=== PATIENT | female | born 1950 | race Caucasian/White ===

== ENCOUNTER → 2018-08-06 08:04 | Outpatient (CLI) | payer MEDICARE, SELFPAY ==
[2018-08-06 09:13] LABS: BUN Creatinine Ratio 26.3 (6-22); Blood Urea Nitrogen 21 mg/dL (7-17); Calcium 9.7 mg/dL (8.4-10.2); Carbon Dioxide 27 mmol/L (22-32); Chloride 100 mmol/L (98-107); Estimated Glomerular Filt Rate > 60.0 mL/min (>60); Glucose 109 mg/dL (80-110); HEMOLYSIS < 15 (0-50); Potassium 3.9 mmol/L (3.4-5.1); Sodium 137 mmol/L (137-145)
== END ==
PROVIDERS: PCP Student in an Organized Health Care Education/Training Program; Visit Provider Student in an Organized Health Care Education/Training Program
DX: I10 Essential (primary) hypertension (principal); Z90.5 Acquired absence of kidney
CPT/HCPCS: 36415; 80048

== ENCOUNTER → 2018-09-26 14:32 | Outpatient (CLI) | payer MEDICARE, SELFPAY ==
[2018-09-26 15:35] LABS: Add Manual Diff / Slide Review NO; Basophils Absolute Auto 0 /uL (0-100); Basophils Percent Auto 0.5 % (0-2); Eosinophils Absolute Auto 300 /uL (0-450); Hematocrit 41.2 % (36-46); Hemoglobin 14.3 g/dL (12.0-16.0); Lymphocytes Absolute Auto 2500 /uL (1100-4500); Lymphocytes Percent Auto 38.7 % (25-40); Mean Corpuscular HGB Conc 34.6 % (30-36); Mean Corpuscular Hemoglobin 30.5 PG (26-34); Mean Corpuscular Volume 88.2 fL (80-100); Monocytes Absolute Auto 500 /uL (0-900); Monocytes Percent Auto 7.4 % (3-14); Neutrophils Absolute Auto 3200 /uL (1500-7000); Neutrophils Percent Auto 48.4 % (50-75); Platelet Count 277 X10^3/uL (150-400); Red Blood Cell Count 4.68 X10^6/uL (4.0-5.2); Red Cell Distribution Width 12.1 % (11.6-14.8); White Blood Cell Count 6.6 X10^3/uL (4.5-11.0)
[2018-09-26 17:07] LABS: Thyroid Stimulating Hormone 1.43 uIU/mL (0.47-4.68)
== END ==
PROVIDERS: PCP Student in an Organized Health Care Education/Training Program; Visit Provider Hospitalist
DX: R53.83 Other fatigue (principal)
CPT/HCPCS: 36415; 84443; 85025

== ENCOUNTER → 2019-07-17 12:26 | Outpatient (CLI) | payer MEDICARE, SELFPAY ==
--- NOTE | 2019-07-17 12:29 | DI.MG.S_ITS ---
BILATERAL DIGITAL SCREENING MAMMOGRAM 3D/2D WITH CAD: 07/17/2019 CLINICAL: Routine screening. Comparison is made to exams dated: 01/21/2018 mammogram, 01/19/2017 mammogram, and 01/14/2016 mammogram - [facility]. The tissue of both breasts is heterogeneously dense. This may lower the sensitivity of mammography. Current study was also evaluated with a Computer Aided Detection (CAD) system. No significant masses, calcifications, or other findings are seen in either breast. There has been no significant interval change. IMPRESSION: NEGATIVE There is no mammographic evidence of malignancy. A 1 year screening mammogram is recommended. This exam was interpreted at Station ID: [id number]. NOTE: For mammograms, a report in lay terms will be sent to the patient. Approximately 15% of breast malignancies will not be visualized mammographically. In the management of a palpable breast mass, a negative mammogram must not discourage biopsy of a clinically suspicious lesion. Electronically Signed By: Dominic still/nina:07/23/2019 19:43:23 letter sent: Normal Exam ACR BI-RADS Category 1: Negative [id number]
== END ==
PROVIDERS: PCP Student in an Organized Health Care Education/Training Program; Referring Provider Student in an Organized Health Care Education/Training Program; Visit Provider Student in an Organized Health Care Education/Training Program
DX: Z12.31 Encounter for screening mammogram for malignant neoplasm of breast (principal); Z13.820 Encounter for screening for osteoporosis; M85.852 Other specified disorders of bone density and structure, left thigh; Z78.0 Asymptomatic menopausal state; Z82.62 Family history of osteoporosis; Z91.89 Other specified personal risk factors, not elsewhere classified
CPT/HCPCS: 77063; 77067; 77080

== ENCOUNTER → 2020-06-01 07:51 | Outpatient (CLI) | payer MEDICARE, SELFPAY ==
[2020-06-01 09:11] LABS: Alanine Aminotransferase 37 IU/L (<35); Albumin 4.2 g/dL (3.5-5.0); Albumin Globulin Ratio 1.5 (1.0-2.8); Alkaline Phosphatase 67 U/L (38-126); Aspartate Aminotransferase 31 IU/L (14-36); BUN Creatinine Ratio 21.3 (6-22); Bilirubin Total 0.7 mg/dL (0.2-1.3); Blood Urea Nitrogen 16 mg/dL (7-17); Calcium 10.1 mg/dL (8.4-10.2); Carbon Dioxide 26 mmol/L (22-32); Chloride 105 mmol/L (98-107); Cholesterol 219 mg/dL (140-199); Estimated Glomerular Filt Rate > 60.0 mL/min (>60); Globulin 2.8 g/dL (1.7-4.1); Glucose 120 mg/dL (80-110); HDL Cholesterol 79 mg/dL (40-60); HEMOLYSIS < 15 (0-50); LDL Cholesterol Calculated 113 mg/dL (<100); Potassium 4.1 mmol/L (3.4-5.1); Sodium 135 mmol/L (137-145); Triglycerides 136 mg/dL (35-150)
== END ==
PROVIDERS: PCP Student in an Organized Health Care Education/Training Program; Referring Provider Registered Nurse; Visit Provider Registered Nurse
DX: I10 Essential (primary) hypertension (principal); E78.5 Hyperlipidemia, unspecified
CPT/HCPCS: 36415; 80053; 80061

== ENCOUNTER → 2020-07-07 14:57 | Outpatient (CLI) | payer MEDICARE, SELFPAY ==
[2020-07-07] MEDS: COVID-19 VACC #1, MRNA(MOD) 100 MCG/0.5 ML VIAL IM (15:04)
== END ==
PROVIDERS: PCP Student in an Organized Health Care Education/Training Program; Visit Provider Internal Medicine
DX: Z23 Encounter for immunization (principal)
CPT/HCPCS: 0011A; 91301

== ENCOUNTER → 2020-08-05 12:31 | Outpatient (CLI) | payer MEDICARE, SELFPAY ==
[2020-08-05] MEDS: COVID-19 VACC #2, MRNA(MOD) 100 MCG/0.5 ML VIAL IM (12:36)
== END ==
PROVIDERS: PCP Student in an Organized Health Care Education/Training Program; Visit Provider Internal Medicine
DX: Z23 Encounter for immunization (principal)
CPT/HCPCS: 0012A; 91301

== ENCOUNTER 2020-12-08 14:44 | Observation (INO) | payer MEDICARE, SELFPAY ==
[2020-12-08] VITALS (14 sets, daily range): BP systolic 130–179; BP diastolic 67–89; PULSE 58–84; RESP 11–23; TEMP 36.3–37.3; O2SAT 95–98; BMI 30.4
--- NOTE | 2020-12-08 14:55 | DI.RAD.S_ITS ---
PROCEDURE: XR CHEST 1V INDICATIONS: Chest pain TECHNIQUE: One view of the chest was acquired. COMPARISON: None. FINDINGS: Surgical changes and devices: None. Lungs and pleura: Lungs are clear. No pleural effusions or pneumothorax. Mediastinum: Mediastinal contours appear normal. Heart size is normal. Bones and chest wall: No suspicious bony lesions. Overlying soft tissues appear unremarkable. IMPRESSION: No acute cardiopulmonary process demonstrated radiographically. Dictated by: Franklin Walker M.D. on 12/08/2020 at 15:23 Approved by: Franklin Walker M.D. on 12/08/2020 at 15:23
[2020-12-08 15:11] LABS: Add Manual Diff / Slide Review NO; Basophils Absolute Auto 100 /uL (0-100); Basophils Percent Auto 0.8 % (0-2); Eosinophils Absolute Auto 400 /uL (0-450); Eosinophils Percent Auto 4.3 % (2-4); Hematocrit 40.8 % (36-46); Hemoglobin 14.1 g/dL (12.0-16.0); Lymphocytes Absolute Auto 2600 /uL (1100-4500); Lymphocytes Percent Auto 30.2 % (25-40); Mean Corpuscular HGB Conc 34.5 % (30-36); Mean Corpuscular Hemoglobin 30.9 PG (26-34); Mean Corpuscular Volume 89.7 fL (80-100); Monocytes Absolute Auto 700 /uL (0-900); Monocytes Percent Auto 7.7 % (3-14); Neutrophils Absolute Auto 4800 /uL (1500-7000); Platelet Count 280 X10^3/uL (150-400); Red Blood Cell Count 4.55 X10^6/uL (4.0-5.2); Red Cell Distribution Width 13.5 % (11.6-14.8); White Blood Cell Count 8.5 X10^3/uL (4.5-11.0)
[2020-12-08 15:24] LABS: Alanine Aminotransferase 41 IU/L (<35); Albumin 4.5 g/dL (3.5-5.0); Albumin Globulin Ratio 1.5 (1.0-2.8); Alkaline Phosphatase 72 U/L (38-126); Aspartate Aminotransferase 33 IU/L (14-36); BUN Creatinine Ratio 22.4 (6-22); Bilirubin Total 0.8 mg/dL (0.2-1.3); Blood Urea Nitrogen 22 mg/dL (7-17); Calcium 10.4 mg/dL (8.4-10.2); Carbon Dioxide 25 mmol/L (22-32); Chloride 105 mmol/L (98-107); Creatine Kinase 85 U/L (30-135); Estimated Glomerular Filt Rate 56.1 mL/min (>60); Glucose 101 mg/dL (80-110); HEMOLYSIS < 15 (0-50); Lipase 151 U/L (23-300); Potassium 3.8 mmol/L (3.4-5.1); Sodium 137 mmol/L (137-145); Total Protein 7.5 g/dL (6.3-8.2)
[2020-12-08 15:34] LABS: Troponin I < 0.012 ng/mL (0.01-0.034)
--- NOTE | 2020-12-08 16:53 | ED_ITS ---
HPI - Chest Pain General Chief Complaint: Chest Pain Stated Complaint: chest pain Time Seen by Provider: 12/08/20 16:07 Source: patient Mode of arrival: Ambulatory History of Present Illness HPI narrative: Patient is a 70-year-old female with history of hypertension hyperlipidemia presenting with chest heaviness and discomfort. She said it started while she was riding in the car around 1:00 p.m.. It radiated up to her neck and jaw she felt like her jaw was clenched. She went home and try to rest. It did subside some however she started having some numbness and left arm discomfort as well. She says she in the past has had right arm discomfort and numbness but never left. No prior history of coronary artery disease. Pain has now gone in the emergency department although when she 1st got here she had some. MD complaint: chest pain Onset (ago): hour(s) Duration: intermittent Onset: during rest Pain location: substernal Severity: moderate Pain radiation: LUE, neck and jaw/teeth Exacerbating factors: nothing Related Data Previous Rx's Medication Instructions Recorded cetirizine 5 mg-pseudoephedrine ER 1 tab PO Q12H PRN #30 tab 09/26/18 120 mg tablet,extended release,12hr (Zyrtec-D) atorvastatin 20 mg tablet 20 mg PO DAILY #90 tab 11/24/20 fluoxetine 40 mg capsule 40 mg PO DAILY #90 cap 11/24/20 losartan 100 1 tab PO DAILY #90 tab 11/24/20 mg-hydrochlorothiazide 25 mg tablet Allergies Allergy/AdvReac Type Severity Reaction Status Date / Time venom-honey bee Allergy Severe Anaphylaxis Verified 11/24/20 09:08 codeine Allergy Intermediate nausea, Verified 11/24/20 09:08 diarrhea Review of Systems Review of Systems Narrative: GENERAL: Denies chills, fatigue, malaise, fever, sweats, travel HEENT: Denies sinus pain, ear pain, sore throat, difficulty swallowing, neck pain RESPIRATORY: Denies dyspnea, cough, wheezing, hemoptysis, sputum. CARDIOVASCULAR: See HPI GASTROINTESTINAL: Denies nausea, vomiting, abdominal pain, diarrhea, constipation, melena. : Denies dysuria, frequency, incontinence, hematuria, urinary retention, flank pain. MUSCULOSKELETAL: Denies weakness, joint pain, or bony pain SKIN: No rash, no erythema, no pruritus NEUROLOGIC: Denies weakness, dizziness, headache, numbness, change in speech, confusion PSYCHIATRIC: No concerning psychosocial issues. 12 point review of systems is negative except for those stated above and HPI Patient History Social History Smoking Status: Never smoker Smoking Status: Never smoker Exam Initial Vital Signs Initial Vital Signs: Vital Signs Temperature 97.9 F 12/08/20 14:53 Pulse Rate 78 12/08/20 14:53 Respiratory Rate 20 12/08/20 14:53 Blood Pressure 179/89 H 12/08/20 14:53 Pulse Oximetry 98 12/08/20 14:53 GENERAL: Alert pleasant 70-year-old female HEENT: Head atraumatic,EOMI, pupils reactive, face symmetric, moist mucous membranes CARDIOVASCULAR: Regular rate and rhythm without murmurs, rubs or gallops. RESPIRATORY: Breath sounds equal bilaterally, no wheezes rales or rhonchi. ABDOMEN: Soft, nontender. Normoactive bowel sounds all 4 quadrants. No guarding or rebound. EXTREMITIES: Normal range of motion, no clubbing or edema. Neurovascularly intact NEUROLOGICAL: Alert and oriented x4.Normal gait and speech. SKIN: Warm, dry, no laceration, no petechiae, no rashes or lesions. Scores HEART Score Heart Score history: Highly Suspicious Heart Score EKG: Normal Heart Score Age: > or = 65 years old Heart Score risk factors: 1-2 risk factors Heart Score troponin: < or = to normal limit Heart Score Total: 5 Course Orders Ordered: ED Orders 12/08/20 14:55 XR chest 1V Stat EKG-12 Lead Stat 12/08/20 15:04 Complete Blood Count AUTO DIFF Stat Comprehensive Metabolic Panel Stat Lipase Stat Troponin & CK Cardiac Panel Stat 12/08/20 16:40 EKG-12 Lead Stat 12/08/20 17:08 Trop I [Troponin I] Stat Discontinued Medications Aspirin (Aspirin 81 Mg Chew Tab) 324 mg PO NOW ONE Stop: 12/08/20 16:41 Last Admin: 12/08/20 17:23 Dose: 324 mg Documented by: JOSEF Vital Signs Vital signs: Vital Signs - 8 hr 12/08/20 14:53 12/08/20 15:06 12/08/20 15:13 Temperature 97.9 F Pulse Rate 78 65 Respiratory Rate 20 12 Blood Pressure 179/89 H 176/79 H Pulse Oximetry 98 98 98 12/08/20 15:30 12/08/20 16:00 12/08/20 16:37 Temperature Pulse Rate 61 62 66 Respiratory Rate 11 L 13 Blood Pressure 162/70 H 148/67 H Pulse Oximetry 97 12/08/20 17:00 Temperature Pulse Rate 63 Respiratory Rate 19 Blood Pressure Pulse Oximetry MDM - Chest Pain Lab Data Attestation: I reviewed the patient's lab results. Result diagrams: 12/08/20 15:04 12/08/20 15:04 Labs: Lab Results 12/08/20 12/08/20 12/08/20 Range/Units 15:04 15:04 17:08 WBC 8.5 (4.5-11.0) X10^3/uL RBC 4.55 (4.0-5.2) X10^6/uL Hgb 14.1 (12.0-16.0) g/dL Hct 40.8 (36-46) % MCV 89.7 (80-100) fL MCH 30.9 (26-34) PG MCHC 34.5 (30-36) % RDW 13.5 (11.6-14.8) % Plt Count 280 (150-400) X10^3/uL Neut % (Auto) 57.0 (50-75) % Lymph % (Auto) 30.2 (25-40) % [place] % (Auto) 7.7 (3-14) % Eos % (Auto) 4.3 H (2-4) % Baso % (Auto) 0.8 (0-2) % Neut # (Auto) 4800 (7233-0586) /uL Lymph # (Auto) 2600 (3271-2692) /uL [place] # (Auto) 700 (0-900) /uL Eos # (Auto) 400 (0-450) /uL Baso # (Auto) 100 (0-100) /uL Sodium 137 (137-145) mmol/L Potassium 3.8 (3.4-5.1) mmol/L Chloride 105 (98-107) mmol/L Carbon Dioxide 25 (22-32) mmol/L BUN 22 H (7-17) mg/dL Creatinine 0.98 (0.52-1.04) mg/dL Estimated GFR 56.1 L (>60) mL/min BUN/Creatinine Ratio 22.4 H (6-22) Glucose 101 (80-110) mg/dL Calcium 10.4 H (8.4-10.2) mg/dL Total Bilirubin 0.8 (0.2-1.3) mg/dL AST 33 (14-36) IU/L ALT 41 H (<35) IU/L Alkaline Phosphatase 72 (38-126) U/L Total Creatine Kinase 85 (30-135) U/L CK-MB (CK-2) TNP CK-MB (CK-2) Rel Index TNP Troponin I < 0.012 < 0.012 (0.01-0.034) ng/mL Total Protein 7.5 (6.3-8.2) g/dL Albumin 4.5 (3.5-5.0) g/dL Globulin 3.0 (1.7-4.1) g/dL Albumin/Globulin Ratio 1.5 (1.0-2.8) Lipase 151 (23-300) U/L Imaging Data Chest x-ray: Radiologist's Impression: PROCEDURE: XR CHEST 1V INDICATIONS: Chest pain TECHNIQUE: One view of the chest was acquired. COMPARISON: None. FINDINGS: Surgical changes and devices: None. Lungs and pleura: Lungs are clear. No pleural effusions or pneumothorax. Mediastinum: Mediastinal contours appear normal. Heart size is normal. Bones and chest wall: No suspicious bony lesions. Overlying soft tissues appear unremarkable. IMPRESSION: No acute cardiopulmonary process demonstrated radiographically. Dictated by: Franklin Walker M.D. on 12/08/2020 at 15:23 ECG Data Attestation: I personally reviewed and interpreted this ECG as follows: Prior ECG tracings: not available for review Interpretation: EKG 1 Sinus rhythm rate 67 p.r. interval 166 QRS 86 QTC 431 Q- wave noted in lead 3 only no priors to compare no ST changes EKG 2. sinus rhythm is p.r. interval 166 QRS [address] changes T-wave noted in lead 3 only no providers MDM Narrative Medical decision making narrative: The patient's sinus symptoms are certainly concerning for coronary artery disease. She is factors of hypertension and hyperlipidemia. No EKG changes and troponins are negative. Dr. Sahu agrees to accept Discharge Plan Departure Patient Disposition: Admitted as Observation Clinical Impression: Chest pain
[2020-12-08] MEDS: ASPIRIN 81 MG CHEW TAB 324 MG PO (17:23)
[2020-12-08 17:44] LABS: Troponin I < 0.012 ng/mL (0.01-0.034)
[2020-12-08 19:27] LABS: COVID19 - ADMIT (NP swab/PCR) Negative (Negative)
--- NOTE | 2020-12-08 20:32 | PC.NURSE ---
no need for seizure pads per provider
[2020-12-08 20:40] LABS: Magnesium 1.7 mg/dL (1.6-2.3)
[2020-12-08 20:41] LABS: Hemoglobin A1C% w Est Avg Glu 5.6 % (4.0-6.0)
[2020-12-08 22:50] LABS: Troponin I < 0.012 ng/mL (0.01-0.034)
--- NOTE | 2020-12-09 00:01 | P.HP_ITS ---
History of Present Illness History of Present Illness Date Patient Seen: 12/08/20 Time Patient Seen: 19:45 Chief complaint: chest pain Narrative: Agueda Norris is a pleasant 70-year-old female with hypertension, hyperlipidemia and a remote history of kidney cancer presented to the emergency department with chest pain that started at 1:00 p.m. on December 08. She was riding as a passenger with her when she developed pain in the center of her sternum that lasted for about 10 minutes. That resolved and then she developed tightening of her jaw that also lasted for about 10 minutes. She states that since then it has been more pressure on her chest. It will get worse and then she will get shoulder and left arm pain which then gets tingly and numb. During the episode that happened earlier today she stated that she had just finished eating and had eaten leftover meat loaf and coffee. She did endorse having diarrhea in the morning. She currently has a headache. She denies shortness of breath, nausea and vomiting, dysuria, diarrhea or constipa tion. She does endorse drinking 3 glasses of wine at night, she denies a history of ever having withdrawal symptoms. She mainly drinks white wine. She did endorse having chest pressure prior to shift change, but when the nurse returned to verify the pain had gone away. In the ED she underwent EKG and a chest x-ray neither of which were remarkable. She has a low for 99.2, blood pressure 179/87, heart rate 62, respiratory rate of 18, her oxygen saturation is 97% on room air, she weighs 77.5 kg with a BMI of 30.4. Her CBC is unremarkable, limits with exception mildly elevated BUN 22, and GFR 56.1, calcium is 10.4, ALT is 41, hemoglobin A1c is 5.6, COVID 19 PCR is negative. Troponins x2 were within normal limits. Lipid panel and TSH are pending. Patient History Medical History (Updated 12/09/20 @ 00:08 by ROMAINE Cross) History of kidney cancer Surgical History (Updated 12/09/20 @ 00:08 by ROMAINE Cross) History of nephrectomy, right History of right knee surgery Family & Social History Family History (Updated 12/09/20 @ 00:09 by ROMAINE Cross) Mother Unknown family medical history Father Unknown family medical history Brother Alive and well Brother Alive and well Social History: household members spouse Prior Living Arrangements House Safety & Behavioral: Feels Safe in Current Yes Environment Suicidal Ideation Description None Tobacco & Substance use: Smoking Status Never smoker alcohol intake current alcohol intake frequency 3 or more drinks per day Substance Use Type does not use Meds Home Medications and Allergies Home Medications Medication Instructions Recorded Confirmed Type cetirizine 5 mg-pseudoephedrine ER 1 tab PO Q12H PRN #30 tab 09/26/18 12/08/20 Rx 120 mg tablet,extended release,12hr (Zyrtec-D) atorvastatin 20 mg tablet 20 mg PO DAILY #90 tab 11/24/20 12/08/20 Rx fluoxetine 40 mg capsule 40 mg PO DAILY #90 cap 11/24/20 12/08/20 Rx losartan 100 1 tab PO DAILY #90 tab 11/24/20 12/08/20 Rx mg-hydrochlorothiazide 25 mg tablet Allergies Allergy/AdvReac Type Severity Reaction Status Date / Time venom-honey bee Allergy Severe Anaphylaxis Verified 11/24/20 09:08 codeine Allergy Intermediate nausea, Verified 11/24/20 09:08 diarrhea Review of Systems Review of Systems ROS: Yes All systems reviewed with the patient and are negative except as otherwise documented Exam Vital Signs (past 8 hours): - 12/08/20 16:37 12/08/20 17:00 12/08/20 17:26 Temperature Pulse Rate 66 63 63 Respiratory Rate 19 20 Blood Pressure 173/74 H Pulse Oximetry 96 12/08/20 17:30 12/08/20 18:00 12/08/20 18:38 Temperature Pulse Rate 58 L 58 L 84 Respiratory Rate 18 14 Blood Pressure 166/74 H 157/69 H Pulse Oximetry 95 95 12/08/20 19:00 12/08/20 19:45 Temperature 99.2 F Pulse Rate 62 62 Respiratory Rate 23 18 Blood Pressure 130/88 179/87 H Pulse Oximetry 96 97 Oxygen Delivery Method Room Air Oxygen Flow Rate 0 Narrative Exam Narrative: Gen: Alert, oriented, well-developed 70 y.o. [] fe[]male, NAD HEENT: normocephalic, atraumatic, conjunctiva clear, sclera non-icteric, oral mucosa pink and moist Neck: supple, full ROM, no JVD, trachea is midline Resp: Lungs CTA, non-labored breathing CV: RRR, no murmur or rubs Abd: soft, non-tender, normoactive BTs Skin: Healed scar over the right knee, no LE edema, no lesions or rashes, dry and intact Neuro: Alert and oriented X 4 w/no focal deficits. Speech clear and coherent. Extremities: moves all 4 extremities, is ambulatory, negative Cole?s sign Psyche: normal mood and affect. Objective ECG Impression: Normal sinus rhythm. Labs Result Diagrams: 12/08/20 15:04 12/08/20 15:04 Labs: Laboratory Results - last 24 hr 12/08/20 12/08/20 12/08/20 15:04 15:04 15:04 WBC 8.5 RBC 4.55 Hgb 14.1 Hct 40.8 MCV 89.7 MCH 30.9 MCHC 34.5 RDW 13.5 Plt Count 280 Neut % (Auto) 57.0 Lymph % (Auto) 30.2 [place] % (Auto) 7.7 Eos % (Auto) 4.3 H Baso % (Auto) 0.8 Neut # (Auto) 4800 Lymph # (Auto) 2600 [place] # (Auto) 700 Eos # (Auto) 400 Baso # (Auto) 100 Sodium 137 Potassium 3.8 Chloride 105 Carbon Dioxide 25 BUN 22 H Creatinine 0.98 Estimated GFR 56.1 L BUN/Creatinine Ratio 22.4 H Glucose 101 Hemoglobin A1c 5.6 Calcium 10.4 H Magnesium Total Bilirubin 0.8 AST 33 ALT 41 H Alkaline Phosphatase 72 Total Creatine Kinase 85 CK-MB (CK-2) TNP CK-MB (CK-2) Rel Index TNP Troponin I < 0.012 Total Protein 7.5 Albumin 4.5 Globulin 3.0 Albumin/Globulin Ratio 1.5 Lipase 151 SARS-CoV-2 (PCR) 12/08/20 12/08/20 12/08/20 17:08 17:08 18:20 WBC RBC Hgb Hct MCV MCH MCHC RDW Plt Count Neut % (Auto) Lymph % (Auto) [place] % (Auto) Eos % (Auto) Baso % (Auto) Neut # (Auto) Lymph # (Auto) [place] # (Auto) Eos # (Auto) Baso # (Auto) Sodium Potassium Chloride Carbon Dioxide BUN Creatinine Estimated GFR BUN/Creatinine Ratio Glucose Hemoglobin A1c Calcium Magnesium 1.7 Total Bilirubin AST ALT Alkaline Phosphatase Total Creatine Kinase CK-MB (CK-2) CK-MB (CK-2) Rel Index Troponin I < 0.012 Total Protein Albumin Globulin Albumin/Globulin Ratio Lipase SARS-CoV-2 (PCR) Negative 12/08/20 22:18 WBC RBC Hgb Hct MCV MCH MCHC RDW Plt Count Neut % (Auto) Lymph % (Auto) [place] % (Auto) Eos % (Auto) Baso % (Auto) Neut # (Auto) Lymph # (Auto) [place] # (Auto) Eos # (Auto) Baso # (Auto) Sodium Potassium Chloride Carbon Dioxide BUN Creatinine Estimated GFR BUN/Creatinine Ratio Glucose Hemoglobin A1c Calcium Magnesium Total Bilirubin AST ALT Alkaline Phosphatase Total Creatine Kinase CK-MB (CK-2) CK-MB (CK-2) Rel Index Troponin I < 0.012 Total Protein Albumin Globulin Albumin/Globulin Ratio Lipase SARS-CoV-2 (PCR) Assessment & Plan Assessment & Plan narrative: Agueda Norris is placed into observation to rule out ACS. Chest pain r/o ACS, acute, present on admission * Pharmacological stress test on 12/09 * Start ASA 81 mg * Received nitro X [] in the ED * EKG shows no ischemic changes * cardiac telemetry * Consider CTA of the chest if the patient has recurrent front to back chest pain. Hypertension * continue losartan 100 mg po daily * Beta romulo may be contraindicated due to her baseline low heart rate HLD -Lipid panel, pending -Start/continue atorvastatin 40 mg po at bedtime Risk stratification -Fasting lipid panel pending -A1c 5.6% VTE prophylaxis: Wells risk score: 0 Enoxaparin 40 mg subQ daily Consults: none Patient is observation status as her stay is not likely to exceed 2 midnights. FEN: IV saline lock, heart healthy diet, BMP and magnesium in the am. Dispo: probable discharge to home Code Status: Full Code as discussed with patient, her Gurinder is her surrogate and POA COVID-19 COVID-19 status: Negative Result date/Date tested (Pos, Neg/Pending): 12/08/20 Quality VTE Deep Vein Thrombosis/Pulmonary Embolism Present on Admission: No MIPS - Admit I confirm the patient?s Advance Care Plan is present, Code status is documented, Surrogate decision maker is in patient?s record [If Yes, STOP here]: Yes
[2020-12-09 00:20] VITALS: BP 160/78; PULSE 59
[2020-12-09] MEDS: LOSARTAN 25 MG TABLET PO (00:20)
[2020-12-09 00:49] LABS: Thyroid Stimulating Hormone 0.987 uIU/mL (0.47-4.68)
--- NOTE | 2020-12-09 03:06 | PC.NURSE ---
Patient is alert and oriented. Breath sounds CTA with RA sat of 97%. At shift change complained of mid sternal pressure radiating through to back. Initially severity was 1-2/10 then increased to 4-5/10 and lasted for approximately 10 minutes (per patient) and then completely resolved without intervention. BP elevated at 160/78; ENVIRONMENTAL MAINTENANCE WORKER informed and order received for now dose of Losartan. Denied nausea. BT present and is passing flatus. Denied dysuria or urgency but states she gets up to urinate 2x/noc; dribbles urine. Is able to turn self in bed. Is up to bathroom independently and is steady on feet. Denied any other pain/discomfort. Fall risk score is low. Verbalized understanding that she will be NPO after 0500 in anticipation of undergoing stress test in morning.
[2020-12-09 04:43] LABS: Add Manual Diff / Slide Review NO; Basophils Absolute Auto 100 /uL (0-100); Basophils Percent Auto 0.7 % (0-2); Eosinophils Absolute Auto 400 /uL (0-450); Eosinophils Percent Auto 5.2 % (2-4); Hematocrit 40.9 % (36-46); Hemoglobin 13.6 g/dL (12.0-16.0); Lymphocytes Absolute Auto 2500 /uL (1100-4500); Lymphocytes Percent Auto 33.8 % (25-40); Mean Corpuscular HGB Conc 33.4 % (30-36); Mean Corpuscular Hemoglobin 30.2 PG (26-34); Mean Corpuscular Volume 90.5 fL (80-100); Monocytes Absolute Auto 500 /uL (0-900); Neutrophils Absolute Auto 4000 /uL (1500-7000); Neutrophils Percent Auto 53.3 % (50-75); Platelet Count 259 X10^3/uL (150-400); Red Blood Cell Count 4.52 X10^6/uL (4.0-5.2); Red Cell Distribution Width 13.4 % (11.6-14.8); White Blood Cell Count 7.5 X10^3/uL (4.5-11.0)
[2020-12-09 04:51] LABS: BUN Creatinine Ratio 24.1 (6-22); Blood Urea Nitrogen 21 mg/dL (7-17); Calcium 10.2 mg/dL (8.4-10.2); Carbon Dioxide 27 mmol/L (22-32); Chloride 103 mmol/L (98-107); Cholesterol 207 mg/dL (140-199); Estimated Glomerular Filt Rate > 60.0 mL/min (>60); Glucose 108 mg/dL (80-110); HDL Cholesterol 66 mg/dL (40-60); HEMOLYSIS < 15 (0-50); LDL Cholesterol Calculated 109 mg/dL (<100); Magnesium 1.6 mg/dL (1.6-2.3); Potassium 4.3 mmol/L (3.4-5.1); Sodium 136 mmol/L (137-145); Triglycerides 160 mg/dL (35-150)
[2020-12-09 05:01] VITALS: BP 146/67; PULSE 59; RESP 18; TEMP 36.3; O2SAT 98
[2020-12-09 05:02] LABS: Troponin I < 0.012 ng/mL (0.01-0.034)
[2020-12-09 08:46] VITALS: BP 146/67; PULSE 59
[2020-12-09] MEDS: LOSARTAN 50 MG TABLET 100 MG PO (08:46)
[2020-12-09] MEDS: ASPIRIN EC 81 MG TABLET PO (08:46)
[2020-12-09] MEDS: ENOXAPARIN 40 MG/0.4 ML SYRINGE SUBCUT (08:46)
[2020-12-09] MEDS: FLUoxetine 20 MG CAPSULE 40 MG PO (09:02)
[2020-12-09] MEDS: SODIUM CHLORIDE 0.9% FLUSH 10 ML IV (09:10)
[2020-12-09 09:38] VITALS: BP 156/77; PULSE 66; RESP 14; TEMP 36.6; O2SAT 98
--- NOTE | 2020-12-09 12:19 | P.DS_ITS ---
History of Present Illness History of Present Illness Chief complaint: chest pain Narrative: Gopi Whipple: Agueda Norris is a pleasant 70-year-old female with hypertension, hyperlipidemia and a remote history of kidney cancer presented to the emergency department with chest pain that started at 1:00 p.m. on December 08. She was riding as a passenger with her when she developed pain in the center of her sternum that lasted for about 10 minutes. That resolved and then she developed tightening of her jaw that also lasted for about 10 minutes. She states that since then it has been more pressure on her chest. It will get worse and then she will get shoulder and left arm pain which then gets tingly and numb. During the episode that happened earlier today she stated that she had just finished eating and had eaten leftover meat loaf and coffee. She did endorse having diarrhea in the morning. She currently has a headache. She denies shortness of breath, nausea and vomiting, dysuria, diarrhea or constipation. She does endorse drinking 3 glasses of wine at night, she denies a history of ever having withdrawal symptoms. She mainly drinks white wine. She did endorse having chest pressure prior to shift change, but when the nurse returned to verify the pain had gone away. In the ED she underwent EKG and a chest x-ray neither of which were remarkable. She has a low for 99.2, blood pressure 179/87, heart rate 62, respiratory rate of 18, her oxygen saturation is 97% on room air, she weighs 77.5 kg with a BMI of 30.4. Her CBC is unremarkable, limits with exception mildly elevated BUN 22, and GFR 56.1, calcium is 10.4, ALT is 41, hemoglobin A1c is 5.6, COVID 19 PCR is negative. Troponins x2 were within normal limits. Lipid panel and TSH are pending. Discharge Providers Provider Date of admission: 12/08/20 18:46 Discharge Date: 12/09/20 Primary care physician: Robles Chan MD Discharge provider: Mau Sahu MD Summary Hospital Course Discharge Diagnosis: 1. Chest pain, ACS ruled out 2. Hypertension 3. Hyperlipidemia Hospital Course: Ms. Norris came in with chest pain. She had workup done which showed negative troponins, no abnormalities on telemetry. No ischemia on EKG. She had a stress test done that was a lowr risk study. She likely has another cause of her pain such as possibly reflux. This was discussed with the patient. Exam Vital Signs (past 8 hours): Oxygen Delivery Method Room Air Oxygen Flow Rate 0 Narrative Exam Narrative: GEN: no acute distress Resp: Lungs CTA, non-labored breathing CV: RRR, no murmur or rubs Abd: soft, non-tender, normoactive BTs Neuro: Alert and oriented X 4 w/no focal deficits. Speech clear and coherent. Objective Labs Result Diagrams: 12/09/20 04:30 12/09/20 04:30 [facility] Medical History (Updated 12/09/20 @ 00:08 by ROMAINE Cross) History of kidney cancer Surgical History (Updated 12/09/20 @ 00:08 by ROMAINE Cross) History of nephrectomy, right History of right knee surgery Family History (Updated 12/09/20 @ 00:48 by ROMAINE Cross) Mother Old age Father Diabetes type 2, controlled Brother Alive and well Brother Alive and well Diabetes type 2, controlled Other Unknown family medical history Social History household members: spouse Smoking Status: Never smoker alcohol intake: current Discharge Plan Discharge Plan Patient Disposition: Home Provider Discharge Comment: Ms. Norris came in with chest pain. Her chest pain improved. She had no heart attack. She had a stress test that showed no evidence of blockage in the heart. Discharge orders & Medications Prescriptions: New aspirin 81 mg Tablet,Delayed Release (Dr/Ec) 81 mg PO DAILY Qty: 30 RF: 0 Continued cetirizine-pseudoephedrine [Zyrtec-D] 5-120 mg tablet extended release 12 hr 1 tab PO Q12H PRN (Reason: allergy symptoms) Qty: 30 RF: 1 fluoxetine 40 mg capsule 40 mg PO DAILY Qty: 90 RF: 3 losartan-hydrochlorothiazide 100-25 mg tablet 1 tab PO DAILY Qty: 90 RF: 3 atorvastatin 20 mg tablet 20 mg PO DAILY Qty: 90 RF: 3 Medication counseling provided by Pharmacist: Yes Follow up/Referrals: Robles Chan MD [Primary Care Provider] - Diet/Activity/Treatments Diet: Regular Visit Report/Discharge Packet Instructions: DI for Chest Pain Discharge Data Primary Care Provider: Robles Chan Attending Provider: Mau Sahu VTE Deep Vein Thrombosis/Pulmonary Embolism Present on Admission: No MIPS - DC The patient has current or prior documentation of left ventricular ejection fraction (LVEF) less than 40%, or moderate or severely depressed left ventricular systolic function.: No
[2020-12-09 14:20] VITALS: BP 119/71; PULSE 77; O2SAT 98
--- NOTE | 2020-12-09 14:58 | PC.NURSE ---
Addendum entered by Crystal Hunt R.N. 12/09/20 15:01: CIWA score remains 0. Original Note: Pt received sleeping in bed. Denies pain, Ox3. VSS, afebrile. Scheduled medications given. NPO this a.m. for stress test but able to eat breakfast after initial step. Denies any further episodes of chest pain. NSR on telemetry this shift. Pt returns from second part of test approximately 1330 and able to eat lunch. awaiting at bedside. Per MD awaiting final read to post from Stress test and if everything is within normal, she may discharge this afternoon/evening pending results being posted.
--- NOTE | 2020-12-09 17:52 | PC.NURSE ---
Dr. Sahu informs this junior technical writer pt is discharged to home and MD has spoken to pt. Pt is up ad lemuel in room with spouse present. Telemetry removed after discussion with BED AND BREAKFAST INNKEEPERJuan Antonio. IV removed intact. Pt dresses self. Pt and pt's spouse provided with prescription for low dose aspirin as well as provided with discharge instructions in written and verbal format. Questions answered as appropriate. Pt left hospital with all belongings accounted for with JACKSCREW MAN escort via wheelchair in stable condition.
--- NOTE | 2020-12-09 18:45 | DI.NM.S_ITS ---
DATE OF SERVICE: 12/09/2020 PROCEDURE PERFORMED: Exercise treadmill stress and rest myocardial perfusion imaging with gating to assess ejection fraction and regional wall motion. ORDERING PROVIDER: Dr. Mau Sahu. INDICATIONS: The patient is a 70-year-old female admitted with chest discomfort. EXERCISE TREADMILL TESTING: The patient was able to exercise for a total of 9 minutes on a standard Geovanny protocol suggesting exceptional exercise capacity with an ARCHANA of -53%. She had a normal heart rate and blood pressure response to exercise, achieving a maximum heart rate of 133 BPM (89% of her predicted maximum). She had no chest discomfort or other anginal symptoms. Her resting ECG is normal and there are no significant ST-segment shifts or arrhythmias with stress. At 7 minutes, 49 seconds of exercise at a heart rate of 126 BPM, 24.6 millicuries of technetium-99m Myoview was injected and she was imaged 15 minutes later using a gated SPECT acquisition protocol. Earlier in the day while at rest, she had been injected with 13.0 millicuries of technetium-99m Myoview and was imaged 30 minutes later, again using a gated SPECT acquisition protocol. FINDINGS: 1. Raw data: There is fairly good myocardial tracer uptake. There are mild breast shadows noted. Lung/heart ratio is normal at 0.27 with a normal TID ratio of 0.94. 2. Quantitated gated SPECT: Post-stress ejection fraction is estimated at 83% without any focal wall motion abnormality. Resting ejection fraction is 85% with a normal end-diastolic volume of 86 mL. 3. Myocardial perfusion imaging: Post-stress supine images show a fairly normal myocardial perfusion pattern with very mild defect in the proximal to the mid inferior wall in a pattern that would be consistent with diaphragmatic attenuation, supported by its complete resolution on the prone images, which reveal a normal, homogeneous perfusion pattern. The resting images show a similar perfusion pattern with mild improvement in the mid inferior wall, but likely nonspecific given the normal post stress prone images. IMPRESSION: 1. Probable normal myocardial perfusion study. 2. Small, subtle partial reversible inferior perfusion defect that completely resolves on prone imaging, most consistent with diaphragmatic attenuation artifact, supported by her excellent exercise capacity and absence of any wall motion abnormality. There is no evidence for any concerning ischemia. 3. Normal left ventricular systolic function without focal wall motion abnormality. 4. Exceptional exercise capacity without angina or ECG evidence of ischemia. Agueda Norris - Graeme/dave doc#: [id number]/job#: [id number] dd: 12/09/2020 16:44:00 dt: 12/09/2020 18:24:00 DICTATING MD/COPIES TO: Wero Juarez MD; Mau Sahu M.D. COPIES MNE: DINAH;
--- NOTE | 2020-12-10 09:10 | CM.DPNOTE ---
Initial Assessment Note Late Entry Met w/patient and spouse yesterday to introduce role. Patient indp. and active at baseline, was awaiting results from her stress test and was feeling eager to return home. 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 Close outpatient f/u recommended. KALINA
== END 2020-12-09 17:57 | disposition home or self-care (01) ==
LOC: ED 18:16 → AC 18:47
PROVIDERS: Emergency Medicine; Nurse Practitioner Family; Admitting Provider Internal Medicine; Emergency Provider Emergency Medicine; PCP Student in an Organized Health Care Education/Training Program; Referring Provider Emergency Medicine; Visit Provider Internal Medicine
DX: R07.9 Chest pain, unspecified (principal); I10 Essential (primary) hypertension; E78.5 Hyperlipidemia, unspecified; Z20.822 Contact with and (suspected) exposure to COVID-19
CPT/HCPCS: 36415; 71045; 78452; 80048; 80053; 80061; 82550; 83036; 83690; 83735; 84443; 84484; 85025; 87635; 93005; 93017; 96372; 99284; C9803; G0378; A9502; J1650

== ENCOUNTER → 2021-12-22 09:46 | Outpatient (CLI) | payer MEDICARE, SELFPAY ==
[2020-12-08 19:49] VITALS: BMI 30.4
--- NOTE | 2021-12-22 09:48 | DI.RAD.S_ITS ---
PROCEDURE: XR KNEE LT 3V INDICATIONS: Re-asses known osteoarthritis TECHNIQUE: <3> views of the knee were acquired. COMPARISON: None. FINDINGS: Bones: No acute fracture. Normal alignment. Fknq-og-abohtowp osteoarthritis, particularly with joint space loss and osteophytes in the medial compartment. Soft tissues: No joint effusion. No suspicious soft tissue calcifications. IMPRESSION: Uezb-lk-isuxwefs osteoarthritis, particularly in the medial compartment. Dictated by: Marvel Gardiner M.D. on 12/22/2021 at 10:48 Approved by: Marvel Gardiner M.D. on 12/22/2021 at 10:49
[2021-12-22 10:52] LABS: BUN Creatinine Ratio 19.6 (6-22); Blood Urea Nitrogen 19 mg/dL (7-17); Calcium 10.1 mg/dL (8.4-10.2); Carbon Dioxide 26 mmol/L (22-32); Chloride 101 mmol/L (98-107); Estimated Glomerular Filt Rate > 60 mL/min (>60); Glucose 109 mg/dL (80-110); HEMOLYSIS < 15 (0-50); Potassium 4.3 mmol/L (3.4-5.1); Sodium 137 mmol/L (137-145)
== END ==
PROVIDERS: PCP Student in an Organized Health Care Education/Training Program; Referring Provider Student in an Organized Health Care Education/Training Program; Visit Provider Student in an Organized Health Care Education/Training Program
DX: I10 Essential (primary) hypertension; M17.12 Unilateral primary osteoarthritis, left knee
CPT/HCPCS: 36415; 73562; 80048

== ENCOUNTER → 2022-02-17 12:51 | Outpatient (CLI) | payer MEDICARE, SELFPAY ==
[2020-12-08 19:49] VITALS: BMI 30.4
--- NOTE | 2022-02-17 13:26 | DI.MG.S_ITS ---
BILATERAL DIGITAL SCREENING MAMMOGRAM 3D/2D WITH CAD: 02/17/2022 CLINICAL: Routine screening. Comparison is made to exams dated: 07/17/2019 mammogram - [facility], 01/21/2018 mammogram, and 01/19/2017 mammogram - [place] [facility]. Both breasts are heterogeneously dense, which may obscure small masses (category c / 51-75% glandular tissue). Current study was also evaluated with a Computer Aided Detection (CAD) system. No significant masses, calcifications, or other findings are seen in either breast. There has been no significant interval change. IMPRESSION: NEGATIVE There is no mammographic evidence of malignancy. A 1 year screening mammogram is recommended. Based on the Tyrer Cuzick model (a risk assessment model) the patient's lifetime risk is 7.7% and her 10 year risk is 5.7%. According to the ACR, ACS, and NCCN guidelines, an annual breast MRI exam along with mammogram is recommended if the patient's lifetime risk is 20% or greater. This exam was interpreted at Station ID: [id number]. NOTE: For mammograms, a report in lay terms will be sent to the patient. Approximately 15% of breast malignancies will not be visualized mammographically. In the management of a palpable breast mass, a negative mammogram must not discourage biopsy of a clinically suspicious lesion. Electronically Signed By: Marvel acosta/nina:02/17/2022 16:46:44 letter sent: Normal Exam ACR BI-RADS Category 1: Negative 3341F
== END ==
PROVIDERS: PCP Student in an Organized Health Care Education/Training Program; Referring Provider Student in an Organized Health Care Education/Training Program; Visit Provider Student in an Organized Health Care Education/Training Program
DX: Z12.31 Encounter for screening mammogram for malignant neoplasm of breast (principal); Z78.0 Asymptomatic menopausal state; M85.852 Other specified disorders of bone density and structure, left thigh
CPT/HCPCS: 77063; 77067; 77080

== ENCOUNTER → 2022-03-22 11:56 | Outpatient (CLI) | payer MEDICARE, SELFPAY ==
[2020-12-08 19:49] VITALS: BMI 30.4
[2022-03-22 13:52] LABS: COVID19 -Nasal RAPID Negative (Negative)
== END ==
PROVIDERS: PCP Student in an Organized Health Care Education/Training Program; Visit Provider Surgery
DX: Z20.822 Contact with and (suspected) exposure to COVID-19 (principal); Z01.812 Encounter for preprocedural laboratory examination
CPT/HCPCS: 87635; C9803

== ENCOUNTER 2022-03-23 11:09 | Day surgery (SDC) | payer MEDICARE, SELFPAY ==
[2020-12-08 19:49] VITALS: BMI 30.4
[2022-03-23] VITALS (7 sets, daily range): BP systolic 115–159; BP diastolic 64–88; PULSE 11–89; RESP 11–16; TEMP 36.2–37.1; O2SAT 75–97; BMI 30.1
--- NOTE | 2022-03-23 10:39 | PM.HP.1 ---
History of Present Illness History of Present Illness Date Patient Seen: 03/23/22 Time Patient Seen: 10:39 Chief complaint: SCREENING COLONOSCOPY Narrative: The patient presents for colorectal screening. She had previous colonoscopy approximately 8 years which she thinks demonstrated benign polyps. She has had diarrhea for the past 1 week otherwise no new gastrointestinal symptoms. Patient History Medical History History of kidney cancer Surgical History History of nephrectomy, right History of right knee surgery Family & Social History Family History Mother Old age Father Diabetes type 2, controlled Brother Alive and well Brother Alive and well Diabetes type 2, controlled Other Unknown family medical history Social History: household members spouse Tobacco & Substance use: Smoking Status Never smoker alcohol intake current alcohol intake frequency 3 or more drinks per day Substance Use Type does not use Meds Home Medications and Allergies Home Medications Medication Instructions Recorded Confirmed Type cetirizine 5 mg-pseudoephedrine ER 1 tab PO Q12H PRN allergy symptoms 09/26/18 12/22/21 Rx 120 mg tablet,extended #30 tabs release,12hr (Zyrtec-D) losartan 100 1 tab PO DAILY HTN #90 tabs 12/15/21 03/23/22 Rx mg-hydrochlorothiazide 25 mg tablet atorvastatin 20 mg tablet 20 mg PO DAILY #90 tabs 12/22/21 03/23/22 Rx fluoxetine 40 mg capsule 40 mg PO DAILY depression #90 caps 12/22/21 03/23/22 Rx Allergies Allergy/AdvReac Type Severity Reaction Status Date / Time venom-honey bee Allergy Severe Anaphylaxis Verified 03/23/22 11:27 codeine Allergy Intermediate nausea, Verified 03/23/22 11:27 diarrhea Exam Narrative Exam Narrative: General adult woman alert oriented no acute distress Chest nonlabored respiration Extremities warm well perfused Assessment & Plan Assessment & Plan narrative: The patient requires colorectal screening and colonoscopy is recommended. Technical details were discussed. Risks, benefits, alternatives explained. Risks including but not limited to myocardial infarction, aspiration, bleeding, pain, missed lesion, incomplete examination, need for further radiographic studies, colonic perforation, and need for major abdominal surgery were discussed. All questions were answered to their satisfaction, and they are in agreement with this plan. Time Spent With Patient Critical Care time: I spent a total of [] minutes of critical care time on this patient's care today; this time is exclusive of procedural time.
--- NOTE | 2022-03-23 10:40 | PM.OP.COLON ---
Operative Date/Time/Diagnoses Date of procedure: 03/23/22 Time of procedure: 10:40 Pre-op diagnosis: Personal history of colonic polyps Post-op diagnosis: same Procedure & Clinicians Study performed: Colonoscopy Same procedure as scheduled: Yes Indications: Screening Surgeon: Austen Bauer Procedure Notes Procedure in detail: Medications: Conscious sedation using 5mg IV midazolam and 100mcg IV of fentanyl The history and physical was performed/updated and the patient is ASA class is 2. The procedure was discussed in detail with the patient. Potential risks complications including infection, bleeding, missed diagnosis, perforation, need for surgery, and were explained. Their questions were answered and informed consent was obtained. Patient was brought to the procedure room and placed standard monitoring equipment. The patient's vital signs were monitored continuously throughout the entire procedure. Prior to starting time-out was performed. The patient was placed in the left lateral recumbent position. Procedural sedation was administered. Examination began with a thorough inspection of the perianal area there was no evidence of fissures, fistulae, external hemorrhoids or cutaneous malignancy. The colonoscopy scope was then placed into the anal canal and was advanced to the cecum, which was identified by the ileocecal valve, the appendiceal orifice and the confluence of the taenia. The scope was then slowly withdrawn examining colon thoroughly in all directions, irrigating it of any residual stool. FINDINGS 1. No masses or polyps 2. Sigmoid colon-moderate diverticulosis 3. Internal hemorrhoids The patient tolerated the procedure well. They will be discharged once criteria are met. The prep was of good/excellent quality. The withdrawl time was 8 minutes. The sedation time was 17 minutes. Specimen(s): none sent Impression: Normal colonoscopy Post-procedure Recommendations: Colonoscopy in 10 years and High fiber diet Disposition: same day surgery
[2022-03-23] MEDS: LACTATED RINGERS 1,000 ML 200 ML IV (11:44)
[2022-03-23] MEDS: MIDAZOLAM 5 MG/5 ML VIAL IV (12:40)
[2022-03-23] MEDS: fentaNYL 100 MCG/2 ML INJ IV (12:41)
== END 2022-03-23 13:45 | disposition home or self-care (01) ==
PROVIDERS: PCP Student in an Organized Health Care Education/Training Program; Referring Provider Surgery; Visit Provider Surgery
PROC: 0DJD8ZZ Inspection of Lower Intestinal Tract, Via Natural or Artificial Opening Endoscopic (ICD-10-PCS; CPT 45378; principal; 2022-03-23 12:15)
DX: Z12.11 Encounter for screening for malignant neoplasm of colon (principal); Z86.010 Personal history of colon polyps; K64.8 Other hemorrhoids; K57.30 Diverticulosis of large intestine without perforation or abscess without bleeding
CPT/HCPCS: G0105; 99152; J2250; J3010

== ENCOUNTER → 2022-12-18 10:13 | Outpatient (CLI) | payer MEDICARE, SELFPAY ==
[2020-12-08 19:49] VITALS: BMI 30.4
--- NOTE | 2022-12-18 10:15 | DI.MG.S_ITS ---
BILATERAL DIGITAL DIAGNOSTIC MAMMOGRAM 3D/2D: 12/18/2022 CLINICAL: Right breast lump. Comparison is made to exams dated: 02/17/2022 mammogram, 07/17/2019 mammogram - [facility], and 01/21/2018 mammogram - [place] [facility]. Both breasts are heterogeneously dense, which may obscure small masses (category c / 51-75% glandular tissue). There is a focal asymmetry in the right breast at 12 o'clock middle depth. This is more prominent and correlates as palpated. No other significant masses, calcifications, or other findings are seen in either breast. IMPRESSION: INCOMPLETE: NEEDS ADDITIONAL IMAGING EVALUATION The focal asymmetry in the right breast is indeterminate. An ultrasound is recommended. Future imaging is recommended as follows: 02/18/2023 screening mammogram. Based on the Tyrer Cuzick model (a risk assessment model) the patient's lifetime risk is 7.7% and her 10 year risk is 5.7%. According to the ACR, ACS, and NCCN guidelines, an annual breast MRI exam along with mammogram is recommended if the patient's lifetime risk is 20% or greater. This exam was interpreted at Station ID: [id number]. NOTE: For mammograms, a report in lay terms will be sent to the patient. Approximately 15% of breast malignancies will not be visualized mammographically. In the management of a palpable breast mass, a negative mammogram must not discourage biopsy of a clinically suspicious lesion. Electronically Signed By: Marvel Gardiner M.D. lc/:12/18/2022 11:24:13 ACR BI-RADS Category 0: Incomplete 3340F
--- NOTE | 2022-12-18 10:15 | DI.US.S_ITS ---
ULTRASOUND OF RIGHT BREAST AND AXILLA: 12/18/2022 CLINICAL: Palpable right breast lump and focal pain. Comparison is made to exams dated: 12/18/2022 mammogram, 02/17/2022 mammogram - [facility], 01/21/2018 mammogram - [facility], 07/17/2019 mammogram - [facility], 01/19/2017 mammogram, and 01/14/2016 mammogram - [facility]. Color flow and real-time ultrasound of the right breast axilla were performed. Joseph scale images of the real-time examination were reviewed. There is an irregular mass with a spiculated margin in the right breast at 12 o'clock middle depth. This correlates as palpated and with mammography findings. No significant abnormalities were seen sonographically in the right axilla. IMPRESSION: HIGHLY SUGGESTIVE OF MALIGNANCY The irregular mass in the right breast is highly suggestive of malignancy. US biopsy recommended. No significant axillary finding. This exam was interpreted at Station ID: [id number]. Electronically Signed By: Marvel Gardiner M.D. lc/:12/18/2022 11:26:11 letter sent: Biopsy Required Ultrasound BI-RADS: 5 Highly suggestive of malignancy
== END ==
PROVIDERS: PCP Pediatrics; Referring Provider Pediatrics; Visit Provider Pediatrics
DX: N63.15 Unspecified lump in the right breast, overlapping quadrants (principal); R92.8 Other abnormal and inconclusive findings on diagnostic imaging of breast
CPT/HCPCS: 76642; 77066; G0279

== ENCOUNTER → 2022-12-26 14:12 | Outpatient (CLI) | payer MEDICARE, SELFPAY ==
[2020-12-08 19:49] VITALS: BMI 30.4
--- NOTE | 2022-12-26 | DI.US.S_ITS ---
ULTRASOUND GUIDED BIOPSY RIGHT BREAST WITH POST MAMMOGRAPHIC AND ULTRASOUND IMAGIN12/26/2022 CLINICAL: Right breast mass. PATIENT CONSENT: Risks (minor bleeding, infection, vasovagal reaction and repeat procedure), benefits and alternatives were explained to the patient and written informed consent was obtained. Correlation is made to exams dated: 12/18/2022 ultrasound, 12/18/2022 mammogram, 02/17/2022 mammogram, and 07/17/2019 mammogram - [facility]. An ultrasound guided biopsy using real-time ultrasound was performed for the oval mass located in the right breast at 12 o'clock middle depth. This was described on the previous ultrasound report. The skin was prepped in the usual manner. Local anesthetic was administered to the access site. The abnormality was approached from the lateral aspect. A 16 gauge biopsy needle was placed adjacent to the abnormality under ultrasound guidance. Once the needle was documented to be in the correct location, five specimens were obtained using an Achieve automated firing device. Post procedure mammographic and ultrasound imaging demonstrates the clip at the targeted area. The specimens were sent to the laboratory for pathological analysis. IMPRESSION: ULTRASOUND GUIDED BIOPSY MALIGNANT Ultrasound guided biopsy of the mass in the right breast middle depth was successful. 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 Pathology results are concordant with imaging findings. A surgical/oncologic consultation is recommended. Results and recommendations will be communicated to the ordering provider's office. This exam was interpreted at Station ID: [id number]. Bernardo Melendez M.D. fx,krg/:01/03/2023 10:07:09
--- NOTE | 2022-12-26 | PATH_ITS ---
[facility] Accession Number: [id number] No. of containers..01 Tissue . 01 Material submitted: . breast - RIGHT BREAST MASS 12:00, 2 CM FN . 01 Diagnosis: A. Right Breast Mass, 12 o'clock, 2 cm from the Nipple, Biopsy: Invasive (ductal) carcinoma with micropapillary features, grade 2 of 3 ([place] combined histologic score of 7/9), with the following characteristics: 1. Tubular differentiation: None. (3/3) 2. Nuclear grade: High. (3/3) 3. Mitotic rate: Low. (1/3). 4. Tumor size: Largest linear span of 8 mm, involving 5 out of 5 cores examined. 5. Ductal carcinoma in situ: Not present. 6. Lymphovascular space invasion: Findings raise suspicion, but not definitive. 7. Calcifications: Not present. 8. Prognostic markers: - Estrogen receptor status: Positive (>95%, strong). - Progesterone receptor status: Positive (65%, strong). - HER2 status: Equivocal for protein overexpression by immunohistochemistry (2+); HER2 gene amplification by FISH studies are pending and the results will be reported in an addendum. [facility] 01/02/2023 1428 Local . 01 Electronically signed: . Liliane Robbins MD, Pathologist NPI- [id number] . 01 Gross description: . Received one formalin-filled container, labeled with the patient's name and designated right breast mass 12 o'clock 2 cm FN. The specimen consists of multiple yellow-park to park-levine, cylindrical-shaped portions of tissue which range in length from 1.1 x 0.2 x 0.2 cm to 1.7 x 0.2 x 0.2 cm. All fragments are totally submitted in one cassette. Possible collection date and time per requisition: 12/26/2022 at 1509. Total fixation time: Approximately 35 hours. ([id number]) /[facility] 12/28/2022 0236 Local . 01 Microscopic: . A panel of immunostains is obtained on block A1 in order to evaluate the invasive carcinoma and to assess for prognostic markers, with appropriately staining external controls. The invasive carcinoma shows the following immunoprofile: . LEI: Highlights periphery of glands (inside out pattern), in support of micropapillary features. D2-40: Focal presence around atypical cells without definitive histologic correlate; findings raise suspicion, but are not definitive, for lymphatic space invasion. P63: Negative, in support of the diagnosis. Smooth muscle myosin: Negative, in support of the diagnosis. . Predictive marker immunohistochemical studies are performed on block A1 with the invasive carcinoma showing the following results: . Estrogen receptor (SP1): Positive (more than 95% tumor cells staining, staining intensity: strong). Progesterone receptor (1E2): Positive (65% tumor cells staining, staining intensity: strong) Her2 (4B5): Equivocal for protein overexpression by immunohistochemistry (2+; HER2 gene amplification by FISH studies are pending and the results will be reported in an addendum. . Internal controls for ER and AR are positive. Cold ischemic time is <5 minutes. The scoring criteria for breast biomarkers by immunohistochemistry is based on the ASCO/CAP guidelines (Abimael AC et al, J Clin Oncol: 2017 10;36(20):2892-5556 and Nova ME et al, Arch Pathol Lab Med: 2009;134(6):907-22). Deparaffinized sections of formalin fixed tissue (along with appropriate positive controls) are incubated with the above antibody(s). Using the automated [place] stainer, tissue is incubated with the designated antibody which is then localized by a non-biotin, dual polymer detection system. The external controls are reviewed for appropriate reactivity and found to be adequate. Results on the target cell population are indicated above. These tests have not been validated on decalcified tissue. This test was developed and its performance characteristics determined by [facility]. It has not been cleared or approved by the U.S. Food and Drug Administration. The FDA has determined that such clearance or approval is not necessary. This test is used for clinical purposes. It should not be regarded as investigational or for research. . 01 Pathologist provided ICD-10: C50.911 . 01 CPT . 369657, L74964, K18616, 884179, 568933, [id number] Specimen Comment: A courtesy copy of this report has been sent to [facility] Pathology Performed at: 01 [facility] [address] [place] [address], [place], [place] [id number] MD Micheal Jimenez MD Phone: [phone]
--- NOTE | 2022-12-26 | DI.MG.S_ITS ---
UNILATERAL RIGHT DIGITAL DIAGNOSTIC MAMMOGRAM 3D/2D: 12/26/2022 CLINICAL: Post clip. Comparison is made to exams dated: 12/18/2022 mammogram, 02/17/2022 mammogram, and 07/17/2019 mammogram - [facility]. The right breast is heterogeneously dense, which may obscure small masses (category c / 51-75% glandular tissue). A biopsy marker is present in the area of biopsy in the right breast. IMPRESSION: POST PROCEDURE MAMMOGRAM FOR MARKER PLACEMENT A biopsy marker in the area of biopsy in the right breast. Based on the Tyrer Cuzick model (a risk assessment model) the patient's lifetime risk is 7.7% and her 10 year risk is 5.7%. According to the ACR, ACS, and NCCN guidelines, an annual breast MRI exam along with mammogram is recommended if the patient's lifetime risk is 20% or greater. This exam was interpreted at Station ID: [id number]. NOTE: For mammograms, a report in lay terms will be sent to the patient. Approximately 15% of breast malignancies will not be visualized mammographically. In the management of a palpable breast mass, a negative mammogram must not discourage biopsy of a clinically suspicious lesion. Electronically Signed By: Bernardo Clinton M.D. fx/:12/26/2022 15:58:58 ACR BI-RADS Category Post-procedure mammogram for marker placement
== END ==
PROVIDERS: PCP Pediatrics; Referring Provider Pediatrics; Visit Provider Pediatrics
DX: C50.811 Malignant neoplasm of overlapping sites of right female breast (principal); Z17.0 Estrogen receptor positive status [ER+]
CPT/HCPCS: 19083; 77065

== ENCOUNTER → 2023-01-10 12:55 | Outpatient (CLI) | payer MEDICARE, SELFPAY ==
[2020-12-08 19:49] VITALS: BMI 30.4
--- NOTE | 2023-01-10 12:56 | DI.MRI.S_ITS ---
BREAST MRI OF BOTH BREASTS: 01/10/2023 CLINICAL: Invasive ductal Carcinoma of the Left breast. TECHNIQUE: The patient was placed prone in a dedicated breast imaging coil. Precontrast axial STIR and 3D FLASH without fat saturation sequences were obtained. Both before and after bolus injection of contrast, sequential 1-minute axial 3D FLASH with fat saturation sequences for 3 time points, with subtraction images and maximum intensity projections (MIP's) generated. Delayed sagittal FLASH images with fat saturation were also obtained. Computer-aided detection, including computer algorithm analysis of MRI image data for lesion detection and characterization, pharmacokinetic analysis, with further physician review for interpretation, was performed. COMPARISON: [facility], , DIAGNOSTIC MAMMO BI, 12/18/2022, 10:38. [facility], SCREENING MAMMO BI, 02/17/2022, 14:01. [facility], US BREAST RT LIMITED, 12/18/2022, 11:11. Image quality: Excellent. There is mild background parenchymal enhancement. Right breast: There is an irregular enhancing mass identified in the middle depth of the right breast at the 12 o'clock position approximately 5 cm from the nipple. This mass measures approximately 1.9 x 1.5 cm in axial cross-sectional dimension (65/series 12) and approximately 1.7 cm in craniocaudal dimension (77/series 15). This mass is consistent with biopsy-proven malignancy which measured approximately 1.7 x 1.0 x 1.4 cm sonographically prior to the biopsy. Susceptibility artifact noted along the superior aspect of the mass compatible with a biopsy marker. There is mixed delayed phase enhancement kinetics to include minimal washout kinetics. Otherwise, no other suspicious mass. No non-mass enhancement or other areas of architectural distortion. No skin or nipple abnormality seen. No axillary or internal mammary chain adenopathy. Left breast: No suspicious mass, non-mass enhancement, or architectural distortion. No skin or nipple abnormalities. No axillary or internal mammary chain adenopathy. Miscellaneous: Visualized portions of the upper abdomen and chest appear unremarkable. IMPRESSION: KNOWN BIOPSY PROVEN MALIGNANCY 1. Irregular 1.9 x 1.5 x 1.7 cm enhancing mass in the right breast 12 o'clock position middle depth representing biopsy-proven malignancy. Of note, this mass measured approximately 1.7 x 1.0 x 1.4 cm sonographically. No evidence for multifocal, multicentric, or contralateral disease. No evidence for metastatic adenopathy. 2. Left breast without MRI evidence for malignancy. COMMENT: The imaging literature indicates that a negative contrast breast MRI examination has a high sensitivity and a moderate specificity for detecting and excluding invasive carcinomas to a detection threshold of 3-5 mm; nonetheless, appropriate clinical and mammographic follow-up are recommended. MRI is not sensitive for detecting DCIS (ductal carcinoma in situ) and may not detect large invasive neoplasms that show only minimal enhancement such as mucinous carcinoma. If there are suspicious calcifications or clinically worrisome palpable masses, then biopsy should still be considered. Invasive neoplasms can be hidden by co-existent and benign enhancement caused by mastitis, hormone therapy effects, radiation therapy, , and recent biopsy or surgery. False positive examinations can occur in a number of circumstances, including breasts that have recently been subject to invasive procedures and those that contain atypical ductal hyperplasia, hormonally stimulated glandular tissue, fat necrosis, or radial scars. This exam was interpreted at Station ID: [id number]. Electronically Signed By: Dominic Jensen M.D. aty/:01/13/2023 00:11:34 ACR BI-RADS Category 6: Known biopsy proven malignancy [id number]
== END ==
PROVIDERS: PCP Pediatrics; Referring Provider Pediatrics; Visit Provider Pediatrics
DX: C50.811 Malignant neoplasm of overlapping sites of right female breast
CPT/HCPCS: 77049; A9579

== ENCOUNTER → 2023-05-18 08:39 | Outpatient (CLI) | payer MEDICARE, SELFPAY ==
[2020-12-08 19:49] VITALS: BMI 30.4
[2023-05-18 09:26] LABS: Add Manual Diff / Slide Review NO; Basophils Absolute Auto 0 /uL (0-100); Basophils Percent Auto 0.7 % (0-2); Eosinophils Absolute Auto 400 /uL (0-450); Eosinophils Percent Auto 5.6 % (2-4); Hematocrit 39.6 % (36-46); Hemoglobin 13.6 g/dL (12.0-16.0); Lymphocytes Absolute Auto 1800 /uL (1100-4500); Lymphocytes Percent Auto 26.2 % (25-40); Mean Corpuscular HGB Conc 34.4 % (30-36); Mean Corpuscular Hemoglobin 30.7 PG (26-34); Mean Corpuscular Volume 89.3 fL (80-100); Monocytes Absolute Auto 500 /uL (0-900); Monocytes Percent Auto 6.8 % (3-14); Neutrophils Absolute Auto 4200 /uL (1500-7000); Neutrophils Percent Auto 60.7 % (50-75); Platelet Count 301 X10^3/uL (150-400); Red Blood Cell Count 4.44 X10^6/uL (4.0-5.2); Red Cell Distribution Width 12.5 % (11.6-14.8); White Blood Cell Count 6.9 X10^3/uL (4.5-11.0)
[2023-05-18 09:50] LABS: Alanine Aminotransferase 35 IU/L (<35); Albumin 3.9 g/dL (3.5-5.0); Albumin Globulin Ratio 1.6 (1.0-2.8); Alkaline Phosphatase 60 U/L (38-126); Aspartate Aminotransferase 28 IU/L (14-36); BUN Creatinine Ratio 24.4 (6-22); Bilirubin Total 0.8 mg/dL (0.2-1.3); Blood Urea Nitrogen 19 mg/dL (7-17); Calcium 9.9 mg/dL (8.4-10.2); Carbon Dioxide 28 mmol/L (22-32); Chloride 101 mmol/L (98-107); Cholesterol 186 mg/dL (140-199); Estimated Glomerular Filt Rate > 60 mL/min (>60); Globulin 2.5 g/dL (1.7-4.1); Glucose 115 mg/dL (80-110); HDL Cholesterol 63 mg/dL (40-60); HEMOLYSIS < 15 (0-50); LDL Cholesterol Calculated 97 mg/dL (<100); Potassium 4.4 mmol/L (3.4-5.1); Sodium 136 mmol/L (137-145); Total Protein 6.4 g/dL (6.3-8.2); Triglycerides 128 mg/dL (35-150)
== END ==
PROVIDERS: PCP Family Medicine; Referring Provider Family Medicine; Visit Provider Family Medicine
DX: E78.5 Hyperlipidemia, unspecified (principal); C50.911 Malignant neoplasm of unspecified site of right female breast; I10 Essential (primary) hypertension
CPT/HCPCS: 36415; 80053; 80061; 85025